=== PATIENT | male | born 1960 | race Caucasian/White ===

== ENCOUNTER → 2018-06-10 | Outpatient (CLI) | payer MEDICARE ==
[~2018-06-10] MED LIST: ZOLPIDEM 5 MG TABLET. PO ONE
--- NOTE | 2018-06-15 18:47 | SLEEP ---
DATE OF STUDY: 06/10/2018 ATTENDING PHYSICIAN: Dr. Romelia Hernandez. The patient is 57 years old who weighs 160 pounds with a BMI of 21. The patient had home sleep study at another facility and was found to have NOE and was using AutoPAP, but was having difficulty adjusting to the auto feature and as a result, was referred back for CPAP/BiPAP titration study. During the night study, the patient spent 467 minutes in bed and slept for 303 minutes with a sleep efficiency of 65%. Sleep latency was 22 minutes with a REM latency of 151 minutes. Overall, sleep architecture showed increased stage 1 and stage 2 sleep, normal slow wave and reduced REM sleep. EKG monitoring revealed normal sinus rhythm, average heart rate was 70 beats per minute, no sustained arrhythmias observed. No PLMs seen. The patient was started on CPAP at 5 cm water, but was unable to tolerate. As a result, he was switched to BiPAP starting at a pressure of 12/8 and pressure was increased all the way up to 30/15; however, best pressures were seen at a BiPAP pressure of 16/8. The patient slept for 30 minutes. The patient's AHI was reduced to 0 per hour. The patient had supine sleep, but no REM sleep observed. The patient's saturation remained above 94%. The patient used small size full face mask. IMPRESSION: 1. Sleep apnea diagnosed by home sleep study at an outside facility. 2. No clinically significant period limb movements. RECOMMENDATIONS: 1. BiPAP at 16/8, completely eliminated the patient's sleep apnea, should be used on a nightly basis. 2. Follow up in 4-6 weeks to assess compliance and to document clinical improvement. 3. Avoid [employer] depressants. 4. Caution regarding driving until symptoms of sleep apnea resolves with the use of BiPAP. MIGUEL ANGEL LUGO MD DR: VERO/fantasma JOB#: [id number] / [id number] ROMELIA Mendosa MD
== END | disposition home or self-care (01) ==
LOC: SLPLAB 18:35
PROVIDERS: ATTEND Family Medicine
DX: G47.33 Obstructive sleep apnea (adult) (pediatric) (principal)
CPT/HCPCS: 95811

== ENCOUNTER → 2018-11-05 | Outpatient (CLI) | payer MEDICARE ==
--- NOTE | 2018-11-05 16:17 | KCIC ---
EXAM: Right lower extremity venous Doppler sonogram. HISTORY: Pain and swelling. TECHNIQUE: Garcia scale and color Doppler sonographic evaluation of the right lower extremity veins with spectral waveform analysis was performed. FINDINGS: The right peroneal veins are not well seen due to calf soft tissue edema. There is normal color flow, normal compressibility and there are normal spectral waveforms in the remainder of the lower extremity veins. There is severe edema with a superimposed fluid collection along the anterior foot measuring 4.0 cm in maximum dimension. IMPRESSION: 1. No Doppler evidence of lower extremity deep venous thrombosis, with limited evaluation of the peroneal veins due to calf soft tissue swelling. 2. Severe foot edema with superimposed fluid collection along the anterior foot. Electronically signed by: Diana Boles MD (11/05/2018 4:14 PM) [place] [id number]
== END | disposition home or self-care (01) ==
LOC: KCIC US 15:19
PROVIDERS: ATTEND Nurse Practitioner Family
DX: S72.91XA Unspecified fracture of right femur, initial encounter for closed fracture (principal); M79.89 Other specified soft tissue disorders; R60.0 Localized edema; X58.XXXA Exposure to other specified factors, initial encounter; Y93.89 Activity, other specified; Y92.89 Other specified places as the place of occurrence of the external cause; Y99.8 Other external cause status
CPT/HCPCS: 93971

== ENCOUNTER → 2018-12-31 | Outpatient (CLI) | payer MEDICARE ==
--- NOTE | 2019-01-01 17:04 | KCIC ---
2 view thoracic spine 2 view lumbar spine Clinical indications: Multilevel laminectomies. Status post fusion. Paraplegic. Lower extremity pain. COMPARISON: None available. Thoracic spine: No compression fracture discitis or lytic process evident. There is moderate degenerative disc space narrowing and endplate spurring throughout the thoracic spine. Mild dextroscoliosis is seen. Laminectomies of T8 and T9 and T10 and T11 evident. IMPRESSION: Moderate degenerative lumbar spondylosis. No acute compression fracture. Lumbar spine: 4 lumbar type vertebrae are evident. Transpedicular screws are seen at T12 through L4. Lateral osseous fusion is seen at the same levels on the left side. The disc spaces of T12-L1 and L1-L2 and L2-L3 and L3-L4 are partially fused. Two vertical metallic stabilizer bars and one horizontal metallic plate are seen. No compression fracture or discitis or lytic process is evident. There is grade 1 anterolisthesis of L4-S1. IVC filter is apparent and the tip of the cone is located at the L3-4 disc space level. Small radiopaque stones of the upper pole of the right kidney are seen. IMPRESSION: Fusion from T12 down through L4. Grade 1 anterolisthesis of L4-S1. No acute compression fracture. Electronically signed by: Edu Frank MD (01/01/2019 5:01 PM) [id number]
== END | disposition home or self-care (01) ==
LOC: KCIC 14:40
PROVIDERS: ATTEND Neurological Surgery
DX: M47.896 Other spondylosis, lumbar region (principal); M43.25 Fusion of spine, thoracolumbar region
CPT/HCPCS: 72072; 72100

== ENCOUNTER → 2019-03-10 | Outpatient (CLI) | payer MEDICARE ==
--- NOTE | 2019-03-10 16:36 | KCIC ---
2 views thoracic spine and 3 views lumbar spine dated 03/10/2019. Comparison made to 12/31/2018. CLINICAL INDICATION: Pain. Status post fusion. FINDINGS: 2 views of thoracic spine and 3 views lumbar spine show interval revision of thoracolumbar fusion. Posterior fusion rods and transpedicular screws extend from the T5 level to the sacrum transverse stabilizing bar at the T7-T8 level and the L3-L4 level. There is an interbody fusion cage at L5-S1. No evidence of hardware fracture or screw migration. There is moderate hypertrophic change of the endplates throughout. Previously noted anterolisthesis of L5 on S1 appears to somewhat improved. There is multilevel facet arthropathy. IVC filter in place. IMPRESSION: Interval revision of thoracolumbar fusion with no apparent complication. Electronically signed by: Damon Sampson MD (03/10/2019 4:33 PM) [id number]
== END ==
LOC: KCIC 15:07
PROVIDERS: ATTEND Neurological Surgery
DX: M12.88 Other specific arthropathies, not elsewhere classified, other specified site (principal); Z98.1 Arthrodesis status
CPT/HCPCS: 72072; 72100

== ENCOUNTER → 2019-03-24 | Outpatient (CLI) | payer MEDICARE ==
--- NOTE | 2019-03-24 17:40 | KCIC ---
AP and lateral views of the lumbar spine and 3 view study of the thoracic spine Clinical indications: Status post fusion. 2 weeks postop. Paraplegic. COMPARISON: March 10, 2019. FINDINGS: Thoracic and lumbar surgical metallic fusion hardware is again seen starting at T5 and extending down to the upper sacrum. Surgical screws are seen extending across the SI joints and iliac bone on both sides. A vertical metallic interbody fusion device is seen at L5-S1.There has been no displacement of the surgical hardware and no new compression fracture or lytic process or discitis is seen. Diffuse hypertrophic endplate spurring is seen. IMPRESSION: Stable study. Electronically signed by: Edu Frank MD (03/24/2019 5:37 PM) [facility]
== END | disposition home or self-care (01) ==
LOC: KCIC 15:14
PROVIDERS: ATTEND Neurological Surgery
DX: M89.38 Hypertrophy of bone, other site (principal); Z98.1 Arthrodesis status
CPT/HCPCS: 72072; 72100

== ENCOUNTER → 2019-04-09 | Outpatient (CLI) | payer MEDICARE ==
--- NOTE | 2019-04-09 17:33 | KCIC ---
Examination: THORACIC SPINE 3V, LUMBAR SPINE 2-3V History: Postoperative fusion Comparison/Correlation: 03/24/2019 thoracic and lumbar spine x-ray exams Findings: Frontal and lateral views of the thoracic spine as well as lumbar spine were obtained. Total of 5 images were provided. Posterior fusion rods and transpedicular screws extend from the T5 level to the sacrum transverse stabilizing bar at the T7-T8 level and the L3-L4 level. There is an interbody fusion cage at L5-S1. No evidence of hardware fracture or screw migration. There is moderate hypertrophic change of the endplates throughout. No change in anterolisthesis of L5 on S1 appears similar to prior exam. There is multilevel facet arthropathy. IVC filter identified. Impression: Thoracolumbar spine postoperative findings are stable. No suspicious new process. Electronically signed by: Kalia Kc MD (04/09/2019 5:30 PM) [facility]
== END | disposition home or self-care (01) ==
LOC: KCIC 15:27
PROVIDERS: ATTEND Neurological Surgery
DX: M43.17 Spondylolisthesis, lumbosacral region (principal); M12.88 Other specific arthropathies, not elsewhere classified, other specified site; M43.25 Fusion of spine, thoracolumbar region
CPT/HCPCS: 72072; 72100

== ENCOUNTER → 2019-05-03 | Outpatient (CLI) | payer MEDICARE ==
--- NOTE | 2019-05-04 09:18 | KCIC ---
EXAM: 1. CT thoracic spine without contrast. 2. CT lumbar spine without contrast. 3. CT sacrum without contrast. HISTORY: Follow-up status post post spinal fusion. TECHNIQUE: CT of the thoracic spine, lumbar spine and sacrum were performed without intravenous contrast. One or more of the following individualized dose reduction techniques were utilized for this examination: 1. Automated exposure control. 2. Adjustment of the mA and/or kV according to patient size. 3. Use of iterative reconstruction technique. COMPARISON: 04/09/2019. FINDINGS: There is instrumented posterior fusion from T5 through both iliac wings. There are bilateral pedicle screws at all levels except T9 where there is a unilateral left screw, L2, where there is a unilateral right screw, and L4 where there is a unilateral right screw. There are laminectomy changes from T7 through T11, decompressing the central canal in the setting of small to moderate posterior disc-osteophyte complexes. There are also changes of L5 corpectomy and anterior fusion. There is grade 2 anterolisthesis at L5. Fusion does not appear solid L4-S1, and there is moderate volume loss at the superior endplate of S1. The left inferior articular processes at L4 and L5 have been resected. There are laminectomy changes at L4 and L5. Degenerative disc disease is moderate to severe from T5 through T11. There are disc calcifications from L1 through L4 across an old region of fusion. Neural foraminal stenosis is moderate to severe bilaterally at T10-11. It is mild to moderate bilaterally from T6 through T10. Neural foraminal stenosis is mild on the right from L2 through L5. The left neural foramina are decompressed. Old laminectomy changes from L1 through L4 every ossified without clear central canal stenosis. At least mild residual central canal stenosis is suspected at T11-12. Bone graft harvesting changes are noted along the right iliac bone. Bulky regions of ossification are noted anterior to both hips, suggesting heterotopic ossification. A healed fracture deformity is suspected along the left iliac wing. The entire pelvis is not included. Left hip osteoarthritis is mild to moderate. A pleural-based nodule posteriorly on the left on axial image 64 measures 7 x 3 mm and is likely only atelectasis. There is mild dependent atelectasis elsewhere. There is a calcified granuloma in the right lower lobe. An uncalcified nodule on image 69 measures 4 mm. Right renal calculi measure up to 5 mm. Atherosclerotic calcifications are noted. An infrarenal inferior vena cava filter is in place. IMPRESSION: 1. Instrumented posterior fusion from T5 through both iliac wings. 2. L5 corpectomy with L4-S1 instrumented anterior fusion. The anterior fusion is not yet clearly solid. There is volume loss at the superior endplate of S1 and grade 2 anterolisthesis at L5-S1. 3. Laminectomy and facetectomy changes as detailed above. Mild residual central canal stenosis is suspected at T11-12. 4. Small lung nodules measure 5 mm or less and are most likely benign at this small size. Follow-up could be considered in one year if there are risk factors. 5. Right renal calculi measure up to 5 mm. Electronically signed by: Feroz Littlejohn MD (05/04/2019 9:15 AM) [facility]
== END | disposition home or self-care (01) ==
LOC: KCIC CT 15:03
PROVIDERS: ATTEND Neurological Surgery
DX: M51.34 Other intervertebral disc degeneration, thoracic region (principal); M48.05 Spinal stenosis, thoracolumbar region; M16.12 Unilateral primary osteoarthritis, left hip; R91.8 Other nonspecific abnormal finding of lung field; N20.0 Calculus of kidney; M25.78 Osteophyte, vertebrae; J84.10 Pulmonary fibrosis, unspecified; I70.90 Unspecified atherosclerosis; Z98.1 Arthrodesis status
CPT/HCPCS: 72128; 72131; 72192

== ENCOUNTER 2019-08-09 08:42 | Outpatient (CLI) | payer MEDICARE ==
[~2019-08-09] VITALS: Ht 188 cm; Wt 74.8 kg
[2019-08-09] VITALS (10 sets, daily range): BP systolic 100–148; BP diastolic 68–87
[2019-08-09] MEDS ORDERED: METH5TAB2 PO ×2 (09:19)
[2019-08-09] MEDS ORDERED: LACT1CAP2 PO (09:19)
[2019-08-09] MEDS ORDERED: DOCU100C28 PO (09:19)
[2019-08-09] MEDS ORDERED: INSU100I51 SQ ×2 (09:19)
[2019-08-09] MEDS ORDERED: PREG200C PO (09:19)
[2019-08-09] MEDS ORDERED: GLUC-11 PO (09:19)
[2019-08-09] MEDS ORDERED: INSU100C4 SQ ×2 (09:19)
[2019-08-09 09:37] LABS: CREATININE 0.7 mg/dL (0.7-1.3); POTASSIUM 4.1 mmol/L (3.5-5.1)
[2019-08-09 09:40] LABS: BASO % 1 % (0-3); EOS # 0.1 x10^3/uL (0.0-0.7); EOS % 3 % (0-3); HEMATOCRIT 40.1 % (39.0-53.0); HEMOGLOBIN 13.2 g/dL (13.0-17.5); LYMPH # 0.5 x10^3/uL (1.0-4.8); LYMPH % 15 % (24-48); MEAN CORPUSCULAR HEMOGLOBIN 26 pg (25-35); MEAN CORPUSCULAR HGB CONC 33 g/dL (31-37); MEAN CORPUSCULAR VOLUME 80 fL (79-100); MONO # 0.3 x10^3/uL (0.0-1.1); MONO % 10 % (0-9); NEUT # 2.6 x10^3/uL (1.8-7.7); NEUT % 72 % (31-73); PLATELET COUNT 137 x10^3/uL (140-400); RED CELL DISTRIBUTION WIDTH 16.9 % (11.5-14.5); WHITE BLOOD COUNT 3.6 x10^3/uL (4.0-11.0)
[2019-08-09] MEDS ORDERED: LIDOCAINE WITH 8.4% SOD BICARB 3 ML DISP.SYRIN. ONE (09:52)
[2019-08-09] MEDS ORDERED: IOHEXOL 240 MG/ML 50ML VIAL. ONE (09:52)
[2019-08-09 10:06] LABS: PROTHROMBIN TIME PATIENT 14.1 SEC (11.7-14.0)
[2019-08-09] MEDS ORDERED: fentaNYL PF VIAL 100 MCG/2 ML VIAL ONE (10:13)
[2019-08-09] MEDS ORDERED: MIDAZOLAM HCL/PF 2 MG/2 ML VIAL. ONE (10:13)
[2019-08-09] MEDS ORDERED: MIDAZOLAM HCL/PF 2 MG/2 ML VIAL. IV ONE (10:30)
[2019-08-09] MEDS ORDERED: IOHEXOL 240 MG/ML 50ML VIAL. IV ONE (10:30)
[2019-08-09] MEDS ORDERED: LIDOCAINE WITH 8.4% SOD BICARB 3 ML DISP.SYRIN. IJ ONE (10:30)
[2019-08-09] MEDS ORDERED: fentaNYL PF VIAL 100 MCG/2 ML VIAL IV ONE (10:30)
--- NOTE | 2019-08-09 11:00 | PDOC ---
MODERATE SEDATION ASSESSMENT RISKS/ALTERNATIVES Risks/Alternatives Risks and alternatives of this type of sedation and procedure discussed with: RISK/ALTERNATIVES: Patient H & P ON CHART H & P H & P on chart and reviewed for co-morbid conditions and appropriate labs. H&P ON CHART: Yes STATUS PREG STATUS ASSESSED: Yes MEDS/ALLERGIES REVIEWED Meds/Allergies Reviewed Medications and Allergies including time and route of recently administered narcotics and sedatives. MEDS/ALLERGIES REVIEWED: Yes ASA RATING ASA RATING: II AIRWAY ASSESSMENT Airway Assessment Airway patency, oral function limitations, presence of caps, crowns, dentures, partials, and ability to extend neck assessed. AIRWAY ASSESSMENT: Yes MALLAMPATI SCORE MALLAMPATI SCORE: II PRE-SEDATION ASSESSMENT PRE-SEDATION ASSESSMENT: Yes KIARA ARMSTRONG MD August 09, 2019 11:00
--- NOTE | 2019-08-09 11:01 | PDOC ---
BRIEF OPERATIVE NOTE Pre-Op Diagnosis provoked DVT, resolved Post-Op Diagnosis same Procedure Performed IVC filter retrieval Surgeon Carey Anesthesia Type: Conscious Sedation Findings No caval thrombosis. Successful filter retrieval in one piece Complications no immediate KIARA ARMSTRONG MD August 09, 2019 11:01
[2019-08-09] MEDS ORDERED: LIDOCAINE WITH 8.4% SOD BICARB 3 ML DISP.SYRIN. INJ ONE (11:45)
[2019-08-09] MEDS ORDERED: LIDOCAINE 1% PF 30 ML VIAL. INJ ONE (11:45)
--- NOTE | 2019-08-09 12:10 | RAD ---
Procedure: IVC filter retrieval Clinical Indication: Adult male with retrievable IVC filter, status post provoked DVT, now resolved. Sedation: Conscious sedation was administered with a total intraprocedural [id number] time of 30 minutes. The patient was monitored by a qualified independent observer throughout the time of sedation. Please refer to the medical record for exact doses of medications utilized to achieve moderate sedation. Antibiotics: None Exposure: Kerma-Area Product: 79 Gycm2 Sterility: All elements of maximal sterile barrier technique including the use of a cap, mask, sterile gown, sterile gloves, large sterile sheet, appropriate hand hygiene, and 2% chlorhexidine for cutaneous antisepsis (or acceptable alternative antiseptic per current guidelines) were followed for this procedure. Consent: The procedure was explained in its entirety to the patient or the patients designated manufacturers representative by a member of the treatment team, including a discussion of the risks, benefits and commonly accepted alternatives to the procedure, as well as the expected consequences of no therapy whatsoever. Discussion of the risks included, but was not limited to, those that are most frequent and those that are rare but possibly severe or life-threatening, as well as the possibility of unforeseen complications. Technique and Findings: Following informed consent, the patient was prepped and draped in usual sterile fashion. 1% lidocaine was used to achieve local anesthesia over the right neck after ultrasound interrogation revealed patency and compressibility of the right internal jugular vein. A hardcopy ultrasound image was recorded as a 21-gauge micropuncture needle was used to gain access to this vein. The needle was exchanged over wire for an angled catheter which was advanced into the infrarenal IVC. Contrast venography was performed demonstrating no evidence of caval thrombosis. Oblique images demonstrated a tilted IVC filter with the apex adjacent to the wall of the vein. A snare retrieval device was then advanced in the IVC filter and multiple attempts is near the apex of the filter were eventually successful. The filter was then removed in its entirety without difficulty. Completion venogram demonstrated no evidence of caval injury or thrombosis. Inspection of the filter revealed the filter to be entirely intact. The sheath was then removed and hemostasis was achieved with manual compression. Complications: No immediate Impression: 1. IVC filter removal as described.
--- NOTE | 2019-08-09 14:30 | NUR ---
Discharge Note: STEPHANIE ADHIKARI Discharge instructions and discharge home medications reviewed with Patient and a copy given. All questions have been answered and understanding verbalized. Dressing to R neck dry and intact The following instructions and handouts were given: moderate sedation, incision care Discontinued lines and drains: Peripheral IV intact. Patient discharged to Home or Self Care with Family Member via Wheelchair VIGNESH JOHANSEN Addendum: 08/09/19 at 1432 by BABS HORTA RN Amended: Links added.
== END 2019-08-09 13:10 | disposition home or self-care (01) ==
LOC: INTRAD 08:42
PROVIDERS: ATTEND Family Medicine
DX: Z45.09 Encounter for adjustment and management of other cardiac device (principal); Z87.442 Personal history of urinary calculi; Z86.73 Personal history of transient ischemic attack (TIA), and cerebral infarction without residual deficits; Z79.899 Other long term (current) drug therapy; Z98.890 Other specified postprocedural states
CPT/HCPCS: 36415; 37193; 80048; 85025; 85610; 99152; 99153; C1769; C1892; J2250; J3010; J3490; Q9966; 76937

== ENCOUNTER → 2019-12-17 | Outpatient (CLI) | payer MEDICARE ==
[2019-08-09 12:55] VITALS: BP 100/71
[~2019-12-17] MED LIST changes: +DOCU100C28 PO; +GLUC-11 PO; +INSU100C4 SQ; +INSU100I51 SQ; +LACT1CAP2 PO; +METH5TAB2 PO; +PREG200C PO; -ZOLPIDEM 5 MG TABLET. PO ONE
--- NOTE | 2019-12-17 17:27 | KCIC ---
Supine and erect AP abdomen radiographs 12/17/2019 CLINICAL HISTORY: Generalized abdominal pain, constipation and diarrhea. Two AP supine and an AP erect digital radiographs of the abdomen/pelvis were obtained. Comparison is made to a CT scan of the thoracic and lumbar spine dated 05/03/2019. The patient is again noted to be post extensive posterolateral fusion which extends from the thoracic spine throughout the lumbar spine and sacrum using pedicle screws and stabilizing rods. Intervertebral body stabilizing device and bone graft material are seen at L5-S1. The Patient is post extensive laminectomy involving the visualized thoracic and lumbar spine. The lung bases are clear. The abdominal bowel gas pattern is nonobstructive. A moderate to large amount stool seen throughout the colon. No free air is seen. No radiopaque calculus is noted. The osseous structures are unchanged. IMPRESSION: Nonobstructive bowel gas pattern. Moderate to large amount stool seen throughout the colon. Electronically signed by: Brad Ventura MD (12/17/2019 5:24 PM) [id number]
== END | disposition home or self-care (01) ==
LOC: KCIC 14:26
PROVIDERS: ATTEND Family Medicine
DX: R19.7 Diarrhea, unspecified (principal); R10.9 Unspecified abdominal pain; R14.3 Flatulence; Z98.1 Arthrodesis status
CPT/HCPCS: 74021

== ENCOUNTER → 2020-03-10 | Outpatient (CLI) | payer MEDICARE ==
[2019-08-09 12:55] VITALS: BP 100/71
--- NOTE | 2020-03-10 16:46 | KCIC ---
EXAM: THORACIC SPINE 3V, LUMBAR SPINE 2-3V 03/10/2020 2:45 PM CLINICAL INDICATION:Confusion, bloating COMPARISON:Lumbar and thoracic spine radiograph 04/09/2019 TECHNIQUE:3 views of the thoracic spine and 2 views of the lumbar spine FINDINGS:Thoracolumbar fusion hardware extending from T5 to S1 with extension to the sacroiliac joints is unchanged in appearance. No evidence of pedicle screw and connecting zeynep loosening or fracture. L5 corpectomy with an interbody cage is unchanged in appearance. There is unchanged osseous fusion along left posterior lateral gutter from at least T10-T11 through L5-S1, unchanged. There is no definite acute fracture or listhesis. Moderate disc space narrowing in the mid and lower thoracic spine is unchanged. There is partial osseous fusion across the disc spaces at L1-L2, L2-L3, and L3-L4. IMPRESSION: Unchanged posterior fusion hardware from T5 through the iliac bones without definite complication. Unchanged appearance of the L5 corpectomy cage. Osseous incorporation of the cage is not well evaluated by radiograph. Electronically signed by: Denise Becker MD (03/10/2020 4:34 PM) [id number]
--- NOTE | 2020-03-10 18:24 | KCIC ---
MRI of the thoracic spine without contrast 03/10/2020 CLINICAL HISTORY: Numbness in the abdominal region. TECHNIQUE: Unenhanced T1-weighted, T2-weighted and inversion recovery sagittal, T2 weighted coronal and T1-weighted and T2-weighted axial images of the thoracic spine were obtained. T2-weighted sagittal and sagittal images of the cervical, thoracic and lumbar spine were obtained for localization purposes. FINDINGS: Comparison is made to a CT scan of the thoracic spine dated 05/03/2019. The patient is post extensive laminectomy and posterolateral fusion using pedicle screws and stabilizing rods which extend from T5 level through the sacrum and ilium. The fusion hardware generates significant magnetic susceptibility artifact markedly limiting these images. Very mild S-shaped curvature of the thoracolumbar spine is seen. Degenerative signal changes are seen involving all of the disks of the thoracic spine. Degenerative signal changes are seen within the marrow surrounding these discs The thoracic spinal cord is reasonably well visualized from T1 to T6 on the axial images. The thoracic spinal cord distal to this is not well evaluated due to significant magnetic susceptibility artifact as discussed above. No definite area of abnormal signal intensity is seen involving the visualized thoracic spinal cord. On the patient's CT scan of the thoracic spine mild central spinal canal stenosis is seen at T11-12 due to facet hypertrophy without definite cord impingement. The neural foramen are not well evaluated due to significant magnetic susceptibility artifact. IMPRESSION: The patient is post extensive laminectomy and posterolateral fusion extending from T5 through the sacrum/ilium. The fusion hardware generates significant magnetic susceptibility artifact markedly limiting these images. Of the visualized portions of the thoracic spinal cord no area of abnormal signal intensity or syrinx is seen. Electronically signed by: Brad Ventura MD (03/10/2020 6:22 PM) [place] [id number]
== END ==
LOC: KCIC MRI 14:38
PROVIDERS: ATTEND Neurological Surgery
DX: M43.25 Fusion of spine, thoracolumbar region (principal); M48.04 Spinal stenosis, thoracic region
CPT/HCPCS: 72072; 72100; 72146

== ENCOUNTER → 2020-09-26 | Outpatient (CLI) | payer MEDICARE ==
[2019-08-09 12:55] VITALS: BP 100/71
--- NOTE | 2020-09-26 13:57 | RAD ---
EXAM: 1. BILATERAL DIGITAL DIAGNOSTIC MAMMOGRAPHY. 2. BILATERAL BREAST ULTRASOUND. HISTORY: Right breast swelling. TECHNIQUE: Bilateral full field digital images were obtained in CC and MLO projections. Computer-aide d detection was applied. Sonography of both periareolar regions was performed. COMPARISON: None available. This is interpreted as a baseline study. COMPOSITION: B. There are scattered areas of fibroglandular density. FINDINGS: There is asymmetric moderate gynecomastia on the right. It is mild on the left. There are n o suspicious masses, microcalcifications or architectural distortion. A few scattered calcifications are benign. On today's sonography, there is glandular tissue deep to the right greater than left nipple, consiste nt with asymmetric gynecomastia. There is no mass or suspicious sonographic finding. Images of both a xillae reveal no pathologic-appearing lymph nodes. BI-RADS CATEGORY 2: Benign. RECOMMENDATION: 1. Ongoing clinical follow-up of gynecomastia on the right greater than left. Electronically signed by: Feroz Littlejohn MD (09/26/2020 1:54 PM) [id number]
== END ==
LOC: MAMMO 12:40
PROVIDERS: ATTEND Family Medicine
DX: N62 Hypertrophy of breast (principal); N61.0 Mastitis without abscess
CPT/HCPCS: 77066; 76641-50

== ENCOUNTER → 2020-09-26 | Outpatient (CLI) | payer MEDICARE ==
[2019-08-09 12:55] VITALS: BP 100/71
--- NOTE | 2020-09-26 17:54 | RAD ---
EXAM: SCROTAL SONOGRAM WITH DOPPLER. HISTORY: Left testicular pain and swelling. COMPARISON: None. FINDINGS: Grayscale and Doppler analysis of the scrotum and contents was performed. The right testicle measures 4.2 x 2.7 x 1.5 cm. The parenchyma is homogeneous without focal lesions. A small epididymal head cyst appears benign and measures 6 x 6 x 4 mm. Internal flow is normal. There is no hydrocele. The left testicle measures 3.9 x 2.5 x 1.6 cm. The parenchyma is mildly heterogeneous without focal l esions. The epididymis appears normal. Internal flow is normal. There is a small hydrocele. The pampi niform plexus is mildly prominent with radicles measuring up to 3 mm. There is augmentation on Valsal va. IMPRESSION: 1. Small left varicocele. Electronically signed by: Feroz Littlejohn MD (09/26/2020 5:51 PM) [id number]
== END ==
LOC: US 12:42
PROVIDERS: ATTEND Nurse Practitioner Gerontology
DX: I86.1 Scrotal varices (principal); N50.3 Cyst of epididymis; N50.89 Other specified disorders of the male genital organs
CPT/HCPCS: 76870